=== PATIENT | female | born 1960 | race Caucasian/White ===

== ENCOUNTER 2021-04-16 09:41 | Emergency (ER) | payer MEDICAID, OTHER ==
[~2021-04-16] VITALS: Ht 160 cm; Wt 63.5 kg
--- NOTE | 2021-04-16 09:54 | NUR ---
TO ER BED 2, C/O NUMBNESS ON THE LEFT ARM AND TINGLING SENSATION ON FINGERS, MD AT BEDSIDE, ATTACHED TO MONITOR, CHANGED INTO A GOWN, SALINE LOCK ESTABLISHED, BLOOD DRAWN.
--- NOTE | 2021-04-16 10:16 | NUR ---
OUTSIDE SALES CONSULTANT AT BEDSIDE
[2021-04-16 10:47] VITALS: BP 156/92
== END 2021-04-16 10:47 | disposition home or self-care (01) ==
LOC: ER 09:41
DX: R00.2 Palpitations (principal); G43.909 Migraine, unspecified, not intractable, without status migrainosus; E03.9 Hypothyroidism, unspecified
CPT/HCPCS: 71045-TC